=== PATIENT | male | born 1935 | race Caucasian/White ===

== ENCOUNTER → 2017-05-27 | Outpatient (CLI) | payer MEDICARE, BC ==
[~2017-05-27] MED LIST: AMOX1TAB3 FT; ASPI-715 PO; AZIT-9 PO; NAPR-1043 PO; RIVA15TA PO; VIT1CAPS38 PO; vitamins
--- NOTE | 2017-05-28 14:11 | RADIOLOGY IMAGING REPORT ---
FACILITY: [facility] PATIENT NAME: BRIANA MADERA : [id number] MR: [id number] V: [id number] EXAM DATE: ORDERING PHYSICIAN: JO ANN LYONS TECHNOLOGIST: Joyce Obando EXAMINATION:TWO-DIMENSIONAL ECHOCARDIOGRAPH REASON:HEART MURMUR 2D Measurements (normal values in centimeters) LV endLV endRV endVent.LV PostAorticLeftPercent DiastolicSystolicDiastolicSeptumWallRootAtriumShortening (3.5-5.7)(0.9-2.6)(0.6-1.1)(0.6-1.1)(2.0-3.7)(1.9-4.0)(25-35%) [id number]% STROKE VOLUME: 90ml ESTIMATED EJECTION FRACTION:67% PARASTERNAL LONG AXIS: Overall left ventricular systolic function appears to be normal. Patient appears to be in atrial fibrillation. No thrombi are noted & the left atrial appendage is not seen. Right ventricle is mildly enlarged. Left atrium also appears to be enlarged. There is a mild amount of tricuspid insufficiency in this view. PARASTERNAL SHORT AXIS: Again overall left ventricular function appears to be normal. Mild concentric left ventricular thickening is noted. Aortic valve is trileaflet in configuration & appears to be stenotic. Color examination of the aortic valve revealed some aortic insufficiency. Color examination of the tricuspid valve revealed some tricuspid insufficiency present. APICAL FOUR AND TWO CHAMBER: Normal left ventricular ejection fraction. Right ventricle appears to be enlarged. The aortic valve area was difficult to calculate but the mean pressure gradient across the valve is 12mm Hg with a dimensionless index of .6 indicating mild aortic stenosis. Left atrial volume is increased severely at 46ml/m2. Right atrial volume is also increased severely at 46ml/m2. The right ventricular function TAPSE is measured within normal ranges at 1.9. SUBCOSTAL VIEW: No pericardial effusion was noted. No atrioseptal or ventriculoseptal defects were appreciated. The aortic insufficiency pressure half time is measured 310msec. OVERALL IMPRESSION: 1. Normal left ventricular ejection fraction. We were unable to accurately measure the diastolic function as the patient is in atrial fibrillation. 2. Mild concentric left ventricular thickening but no evidence for any outflow tract obstruction. 3. There is mild to borderline moderate right ventricular enlargement with the left ventricle being normal in size. 4. There is severe left atrial & right atrial enlargement as measured by volume measurements. 5. A trileaflet aortic valve which appears to be stenotic. The valve area was not able to be accurately measured but the mean pressure gradient across the valve was 12mm Hg & a dimensionless index of .6. There is a moderate to borderline severe amount of aortic insufficiency present. 6. A mild amount of mitral insufficiency is noted. There is also a mild to moderate amount of tricuspid insufficiency with estimated right ventricular systolic pressures at 54mm Hg which does include an estimated right atrial pressure of 3mm Hg indicating moderate pulmonary hypertension & increased right ventricular systolic pressures. 7. A trace to mild amount of pulmonic insufficiency is noted. 8. In comparison with the examination done on 05/25/16, no significant appreciable change was noted. The aortic valve measurements were approximately the same so it is suggested that the actual aortic valve area is approximately the same as previous echo. Dictated by: Mari Gregory M.D. on 05/28/2017 at 10:39 Transcribed by: DEYANIRA on 05/28/2017 at 13:37 Approved by: Mari Gregory M.D. on 05/28/2017 at 14:10 [facility]
== END ==
LOC: US 01:15
PROVIDERS: ATTEND Family Medicine
DX: I48.91 Unspecified atrial fibrillation (principal); I51.7 Cardiomegaly; I35.2 Nonrheumatic aortic (valve) stenosis with insufficiency; I07.1 Rheumatic tricuspid insufficiency; I27.20 Pulmonary hypertension, unspecified
CPT/HCPCS: 93306